=== PATIENT | female | born 1960 | race Caucasian/White ===

== ENCOUNTER 2024-07-25 09:36 | Emergency (ER) | payer BC, OTHER ==
[~2024-07-25] VITALS: Ht 167.6 cm; Wt 71.0 kg
[2024-07-25] MEDS: triamcinolone acetonide 40mg/ml inj IM ONE (11:02)
[2024-07-25] MEDS ORDERED: PRED20TA PO (11:14)
[2024-07-25 11:18] VITALS: BP 138/70; PULSE 78; RESP 16; TEMP 98; O2SAT 98
== END 2024-07-25 11:21 | disposition home or self-care (01) ==
LOC: ER 09:37
DX: L23.7 Allergic contact dermatitis due to plants, except food (principal)
CPT/HCPCS: 96372; 99283; J3301